=== PATIENT | male | born 1965 | race Caucasian/White ===

== ENCOUNTER 2023-12-26 18:33 | Emergency (ER) | payer OTHER, SELFPAY ==
[2023-12-26 18:34] VITALS: BP 179/116; PULSE 114; RESP 18; TEMP 39.3; O2SAT 95; BMI 33.0
--- NOTE | 2023-12-26 18:36 | ED_ITS ---
I was consulted by the AISHA, and we discussed the complexity of the problems being addressed. I approved the treatment and management plan for this patient's care in the emergency department, thus performing a substantive portion of the medical decision making. Arsh Benito MD Discharge Plan Disposition Patient Disposition: Home, Self-Care Condition: Good Referrals Follow up/Referrals: Mehran Hughes [Primary Care Provider] - See instructions Activity Restrictions/Add. Instructions Additional Instructions/Restrictions: Please take 1000 mg, two 500 mg tablets, alternating with 800 mg of Motrin every 4 hours as needed for symptoms. Please return to the ER for any worsening or new symptoms. Clinical Impressions Clinical Impression: Influenza A Discharge ED Provider: Arsh Benito General Adult HPI General Chief complaint: Upper Respiratory Infection Stated complaint: exposed to flu-fever, SOA, VANG body aches Time Seen by Provider: 12/26/23 18:35 History of Present Illness HPI narrative: Patient presents with nonproductive cough, fever, myalgias, back pain. Patient's was diagnosed with influenza yesterday. Patient actually started having symptoms last night. He denies cardiac type chest pain hemoptysis hematochezia melena nausea vomiting diarrhea. Patient states his back pain is located in the lumbar area and is worse when coughing. Related Data Allergies Allergy/AdvReac Type Severity Reaction Status Date / Time erythromycin base Allergy Verified 12/26/23 18:49 tetracycline Allergy Verified 12/26/23 18:49 [facility] Disclaimer: The information contained in this section may have been updated after the patient was seen, as this information can be updated by other users. Social History Smoking Status: Current every day smoker alcohol intake: former current occupational status: disabled Travel in the last 8 weeks: None ROS Obtained: Yes Systems reviewed as appropriate & no additional complaints except as documented Physical Exam General General appearance: alert and in no apparent distress Head Head exam: atraumatic and normocephalic ENT ENT exam: Present normal exam and normal oropharynx; Absent mucous membranes moist (Very dry) Neck Neck exam: Present normal inspection and full ROM Chest Chest inspection: Present normal inspection and symmetric chest wall rise Respiratory Respiratory exam: Present normal lung sounds bilaterally; Absent respiratory distress, wheezes or accessory muscle use Cardiovascular Cardiovascular exam: Present normal rhythm, tachycardia and normal heart sounds Abdominal Exam Abdominal exam: Present soft and tenderness Extremities Exam Extremities exam: Present normal inspection and full ROM Back Exam Back exam: Present normal inspection, full ROM and tenderness (Bilateral lumbar paraspinous muscles tender to palpation. No deformities contusions abrasions. Patient is neurovascularly intact distally with no worsening symptoms with range of motion testing) Neurological Exam Neurological exam: Present alert and oriented X3 Skin Skin exam: Present other (Skin is hot diaphoretic and slightly flushed.) Medical Decision Making Medical Records Medical records reviewed: Yes I reviewed the patient's medical records. Paul Inquiry Pt receiving controlled substance: No Vital Signs: 12/26/23 18:34 Temperature 102.8 F H Temperature Source Oral Pulse Rate [Radial] 114 H Respiratory Rate 18 Blood Pressure [Right Arm] 179/116 H Blood Pressure Mean [Right Arm] 137 Blood Pressure Source [Right Arm] Automatic Cuff Blood Pressure Position [Right Arm] Sitting 02 Sat by Pulse Oximetry 95 Oxygen Delivery Method Room Air Lab Data Lab results reviewed: Yes I reviewed the patient's lab results. Lab Results 12/26/23 18:40: SARS-CoV-2 (PCR) Not detected, Influenza A Untype (PCR) Detected A, Influenza Type B (PCR) Not detected Orders (Tests/Meds): ED MEDICATIONS Generic Name Dose Route Start Last Admin Trade Name Freq PRN Reason Stop Dose Admin Lactated Ringer's 1,000 mls @ 999 mls/hr 12/26/23 18:58 12/26/23 19:21 Lactated Ringer's 1000 Ml Bag IV 12/26/23 19:58 999 mls/hr .Q1H1M ONE Administration Discontinued Medications Generic Name Dose Route Start Last Admin Trade Name Freq PRN Reason Stop Dose Admin Acetaminophen 1,000 mg 12/26/23 18:49 12/26/23 18:58 Acetaminophen 500mg Tab PO 12/26/23 18:50 1,000 mg ONCE ONE Administration Ketorolac Tromethamine 30 mg 12/26/23 18:49 12/26/23 18:58 Ketorolac 30mg/Ml Vial IM 12/26/23 18:50 30 mg ONCE ONE Administration ORDERS Category Date Time Status XR chest portable Stat Exams 12/26/23 18:49 Taken Rapid PCR Covid and Flu A/B Stat Lab 12/26/23 18:40 Completed Medical Decision Narrative: In summary patient is a 58-year-old male who presents to the emergency d epartment for evaluation of fever cough myalgias and flu exposure. Patient is slightly elevated blood pressure and tachycardia upon arrival, with a temperature of 102.8 on arrival. Physical exam shows an unwell appearing 58-year-old male who has a dry cough and shows sinus tachycardia on the monitor and a subjective back pain that is nonpalpable on palpation and with no CVA tenderness to percussion. Auscultated breath sounds shows clear breath sounds bilaterally to the bases.. Differential diagnosis includes influenza versus muscle strain versus COPD versus other viral or bacterial illness. Initial workup will be conducted with rapid COVID flu chest x-ray. Initial interventions include crystalloid bolus Tylenol and Toradol. Initial workup reviewed by me shows via my informal interpretation a normal chest x-ray without any evidence of acute infiltrate or other processes. Patient is positive for influenza A. Upon repeat evaluation improvement in his constitutional symptoms and his fever had defervesced. Given this appropriate for discharge home with instructions to treat his symptoms especially the fever with 1000 mg of Tylenol every 6-8 hours as needed alternating with 800 mg of ibuprofen in the 4 hours between. Patient to follow-up with PCP as needed or return to the ER for any worsening or new symptoms. Via shared decision making patient verbalized understanding and was agreeable to that plan. Critical Care Critical Care Time Critical Care Time: No
[2023-12-26 18:46] LABS: Coronavirus 19, PCR Not Detected (NotDetected); Influenza B, PCR Not Detected (NotDetected)
--- NOTE | 2023-12-26 18:49 | XR_ITS ---
PROCEDURE INFORMATION: Exam: XR Chest Exam date and time: 12/26/2023 6:56 PM Age: 58 years old Clinical indication: Cough and fever; Patient HX: Fever, cough, his has flu and he thinks he has it as well. Smoker; Additional info: Fever cough TECHNIQUE: Imaging protocol: Radiologic exam of the chest. Views: 1 view. COMPARISON: No relevant prior studies available. FINDINGS: Lungs: Central opacities with peribronchial cuffing. Pleural spaces: Unremarkable. No pleural effusion. No pneumothorax. Heart/Mediastinum: Unremarkable. No cardiomegaly. Bones/joints: Unremarkable. IMPRESSION: Combination of findings that suggests viral process versus reactive airways without evidence of consolidation.
[2023-12-26] MEDS: ACETAMINOPHEN 500MG TAB 1000 MG PO (18:58)
[2023-12-26] MEDS: KETOROLAC 30MG/ML VIAL 30 MG IM (18:58)
[2023-12-26 19:06] LABS: Influenza A, PCR Detected (NotDetected)
[2023-12-26] MEDS: LACTATED RINGERS 1000ML 1,000 ML 999 ML IV (19:21)
[2023-12-26 19:40] VITALS: TEMP 38.2
[2023-12-26 20:31] VITALS: BP 143/88; PULSE 98; RESP 18; TEMP 37; O2SAT 94
== END 2023-12-26 20:32 | disposition home or self-care (01) ==
PROVIDERS: Physician Assistant; Emergency Provider Emergency Medicine; PCP Family Medicine
DX: J10.1 Influenza due to other identified influenza virus with other respiratory manifestations (principal); R05.9 Cough, unspecified; R50.9 Fever, unspecified; R51.9 Headache, unspecified; R06.02 Shortness of breath; M54.9 Dorsalgia, unspecified; R00.0 Tachycardia, unspecified; F17.200 Nicotine dependence, unspecified, uncomplicated
CPT/HCPCS: 71045; 87636; 96360; 96372; 99284

== ENCOUNTER 2024-05-12 23:58 | Emergency (ER) | payer OTHER, SELFPAY ==
[2024-05-13 00:07] VITALS: BP 190/97; PULSE 60; RESP 16; TEMP 36.6; O2SAT 98; BMI 32.1
[2024-05-13 00:10] VITALS: BMI 32.1
[2024-05-13] MEDS: TETRACAINE/BENZOCAINE/BUTAMBEN 56 GM SPRAY TP (00:26)
[2024-05-13] MEDS: LIDOCAINE 2% VISCOUS SOL 15ML UDC 15 ML PO (00:27)
[2024-05-13] MEDS: OXYCODONE 5MG IMMEDIATE RELEASE TABLET 5 MG PO (00:27)
[2024-05-13 00:28] VITALS: BP 191/103; PULSE 64; O2SAT 97
--- NOTE | 2024-05-13 00:30 | HMH.EDGENADL ---
Discharge Plan Disposition Patient Disposition: Home, Self-Care Condition: Good Prescriptions Prescriptions: New amoxicillin-pot clavulanate 875-125 mg tablet 1 tab PO BID Qty: 14 0RF oxycodone 5 mg tablet 5 mg PO Q8H PRN (Reason: pain, severe) Qty: 6 0RF Referrals Follow up/Referrals: Mehran Hughes [Primary Care Provider] - See instructions Activity Restrictions/Add. Instructions Additional Instructions/Restrictions: You were evaluated in the ER. You are appropriate for discharge at this time. Take the prescribed antibiotics as directed, do not skip doses, do not stop taking them early. Take Tylenol and ibuprofen if needed for pain, also use the provided dental balls. You can use these for 1 hour at a time, then remove for an hour. Do not sleep or eat with these in. Only take the prescribed oxycodone if your pain is not controlled by Tylenol, ibuprofen, and dental balls. This should only be used for severe pain. This can cause sleepiness as well as constipation. Avoid driving after you have taken this. Make an appointment with his dentist as soon as possible for reevaluation and dental treatment. Also make an appoint with your primary care physician for reevaluation. Return to the ER with new, worsening, or otherwise concerning symptoms. Clinical Impressions Clinical Impression: Dental infection, Dental caries, Broken teeth Discharge ED Provider: Yue Pagan Adult HPI General Chief complaint: Dental/Oral Stated complaint: broken tooth Time Seen by Provider: 05/13/24 00:09 Mode of Arrival: Family Vehicle Source of Information: Patient Limitations: No Limitations Description of Symptoms (Recalled from ER Triage Doc. by RN): left upper jaw pain after tooth broke during supper (approx 2 hours ago). states he attempted self-care at home but the pain is extreme and just wants help so he can rest. History of Present Illness HPI narrative: 59-year-old male with history of hypertension presents to the ER for concerns of upper jaw pain. Patient states he has multiple bad teeth, the last time he saw dentist was approximately 5 to 6 years ago. Patient states he broke a tooth during supper approximately 2 hours prior to arrival. Since that time he has had pain shooting up into the left side of the face. Patient states he is concerned about possible infection. ROS otherwise negative. Patient took ibuprofen prior to arrival. Related Data Previous Rx's Medication Instructions Recorded amoxicillin 875 mg-potassium 1 tab PO BID #14 tabs 05/13/24 clavulanate 125 mg tablet oxycodone 5 mg tablet 5 mg PO Q8H PRN pain, severe #6 05/13/24 tabs Allergies Allergy/AdvReac Type Severity Reaction Status Date / Time erythromycin base Allergy Verified 12/26/23 18:49 tetracycline Allergy Verified 12/26/23 18:49 [facility] Disclaimer: The information contained in this section may have been updated after the patient was seen, as this information can be updated by other users. Social History (Updated 12/26/23 @ 19:34 by ZOLTAN Orozco) Smoking Status: Unknown if ever smoked alcohol intake: former current occupational status: disabled Travel in the last 8 weeks: None ROS Obtained: Yes All systems reviewed & no additional complaints except as documented ENT Ears, Nose, Mouth, and Throat: Reports dental pain and Reports facial pain Physical Exam General General appearance: alert and in no apparent distress Head Head exam: atraumatic and normocephalic Eye Eye exam: Present PERRL and EOMI ENT ENT exam: Present mucous membranes moist and other (No trismus; no submandibular erythema or swelling); Absent normal oropharynx (Extremely poor dentition, multiple dental fractures and missing teeth, multiple dental caries, erythema of the left maxillary gingiva, no abscess or obvious fluctuance, multiple fractured teeth on the side) Neck Neck exam: Present normal inspection and full ROM; Absent lymphadenopathy Chest Chest inspection: Present symmetric chest wall rise Respiratory Respiratory exam: Absent respiratory distress or stridor Cardiovascular Cardiovascular exam: Present regular rate and normal rhythm Extremities Exam Extremities exam: Present full ROM Neurological Exam Neurological exam: Present alert and oriented X3; Absent motor sensory deficit Psychiatric Psychiatric exam: Present normal affect and normal mood Skin Skin exam: Present warm and dry Medical Decision Making Paul Inquiry Pt receiving controlled substance: Yes Paul was queried for this patient: No (PDMP reviewed, no narcotics prescriptions) Risks and benefits of using a controlled substance: were discussed with pt by me Vital Signs: 05/13/24 00:07 05/13/24 00:28 05/13/24 00:45 Temperature 97.8 F Temperature Source Oral Pulse Rate 64 57 L Pulse Rate [Right Brachial] 60 Respiratory Rate 16 Blood Pressure 191/103 H 160/100 H Blood Pressure [Right Arm] 190/97 H Blood Pressure Mean [Right Arm] 128 Blood Pressure Source Manual Cuff/ Auscultation Blood Pressure Source [Right Arm] Automatic Cuff Blood Pressure Position Blood Pressure Position [Right Arm] Sitting 02 Sat by Pulse Oximetry 98 97 96 Oxygen Delivery Method Room Air 05/13/24 00:55 Temperature 98.7 F Temperature Source Oral Pulse Rate 60 Pulse Rate [Right Brachial] Respiratory Rate 18 Blood Pressure 160/100 H Blood Pressure [Right Arm] Blood Pressure Mean [Right Arm] Blood Pressure Source Manual Cuff/ Auscultation Blood Pressure Source [Right Arm] Blood Pressure Position Sitting Blood Pressure Position [Right Arm] 02 Sat by Pulse Oximetry Oxygen Delivery Method Room Air Orders (Tests/Meds): ED MEDICATIONS Discontinued Medications Generic Name Dose Route Start Last Admin Trade Name Freq PRN Reason Stop Dose Admin Amoxicillin/Clavulanate Potassium 1 each 05/13/24 00:46 05/13/24 00:49 Amoxicillin/Clavulanate Potassium 875/125mg Tablet PO 05/13/24 00:47 1 each ONCE ONE Administration Benzocaine/Butamben/Tetracaine HCl 1 gm 05/13/24 00:10 05/13/24 00:26 Tetracaine/Benzocaine/Butamben 56 Gm [place] TP 05/13/24 00:11 1 gm ONCE ONE Administration Lidocaine HCl 15 ml 05/13/24 00:10 05/13/24 00:27 Lidocaine 2% Viscous [place] 15ml Udc PO 05/13/24 00:11 15 ml ONCE ONE Administration Oxycodone HCl 5 mg 05/13/24 00:12 05/13/24 00:27 Oxycodone 5mg Immediate Release Tablet PO 05/13/24 00:13 5 mg ONCE ONE Administration Medical Decision Narrative: In summary, this 59-year-old male presents to the emergency department today with left maxillary dental pain. On initial evaluation patient is hemodynamically stable, afebrile, multiple dental caries, fractured teeth, missing teeth, poor dentition overall, tenderness of the left maxillary gingiva without obvious abscess. Differential diagnosis includes but is not limited to dental abscess, other dental infection, fractured tooth, I considered Ludewig's angina however patient does not have any pain in the mandible or submandibular space, no submandibular swelling, no swelling under the tongue. I do not believe patient requires any labs or imaging at this time. He received oxycodone and dental balls in the ER. Short course of oxycodone was prescribed to the patient for outpatient management of acute pain until he is able to see a dentist. I also prescribed Augmentin. He received a dose of this in the ER as well. Patient was given instructions on symptomatic management, follow up instructions, and return precautions for the emergency department. Patient indicated understanding and was discharged in stable condition. Critical Care Critical Care Time Critical Care Time: No
[2024-05-13 00:45] VITALS: BP 160/100; PULSE 57; O2SAT 96
[2024-05-13] MEDS: AMOXICILLIN/CLAVULANATE POTASSIUM 875/125MG TABLET 1 EACH PO (00:49)
[2024-05-13 00:55] VITALS: BP 160/100; PULSE 60; RESP 18; TEMP 37.1; O2SAT 98
== END 2024-05-13 01:10 | disposition home or self-care (01) ==
PROVIDERS: Emergency Provider Emergency Medicine; PCP Family Medicine
DX: R68.84 Jaw pain (principal); K04.7 Periapical abscess without sinus; K03.81 Cracked tooth; K02.9 Dental caries, unspecified; I10 Essential (primary) hypertension
CPT/HCPCS: 99283

== ENCOUNTER 2024-06-28 12:52 | Emergency (ER) | payer OTHER, SELFPAY ==
[2024-06-28 12:53] VITALS: BP 170/106; PULSE 57; RESP 19; TEMP 36.8; O2SAT 98; BMI 24.2
--- NOTE | 2024-06-28 12:59 | PC.NURSE ---
DR MENA AT BEDSIDE
--- NOTE | 2024-06-28 13:05 | HMH.EDGENADL ---
Discharge Plan Disposition Patient Disposition: Home, Self-Care Prescriptions Prescriptions: New amoxicillin-pot clavulanate 875-125 mg tablet 1 tab PO BID 10 Days Qty: 20 0RF No Action amoxicillin-pot clavulanate 875-125 mg tablet 1 tab PO BID Qty: 14 0RF oxycodone 5 mg tablet 5 mg PO Q8H PRN (Reason: pain, severe) Qty: 6 0RF Referrals Follow up/Referrals: Mehran Hughes [Primary Care Provider] - See instructions Activity Restrictions/Add. Instructions Additional Instructions/Restrictions: Take antibiotics as prescribed. Take Tylenol and ibuprofen as needed for symptoms. Follow-up with dentist as soon as possible. Please return the emerged part with any new, concerning, worsening symptoms Clinical Impressions Clinical Impression: Pain, dental Instructions Patient Instructions: DI for Dental Pain Print Language Print Language: Nigerien Discharge ED Provider: Chetan Soto General Adult HPI General Chief complaint: PAIN Stated complaint: pain in teeth Time Seen by Provider: 06/28/24 12:54 History of Present Illness HPI narrative: This is a 59-year-old male with poor dentition presenting with dental pain. States that he has had intermittent dental infections requiring treatment with antibiotics intermittently. States that he has not been able to see a dentist over the last several years. States that he knows that he has bad teeth and needs to have them pulled. States that he is in process and finding a dentist/oral surgeon. Is requesting antibiotics. Denies any facial swelling. Denies any other symptoms Related Data Previous Rx's ?Medication ?Instructions ?Recorded amoxicillin 875 mg-potassium 1 tab PO BID #14 tabs 05/13/24 clavulanate 125 mg tablet oxycodone 5 mg tablet 5 mg PO Q8H PRN pain, severe #6 05/13/24 tabs amoxicillin 875 mg-potassium 1 tab PO BID 10 days #20 tabs 06/28/24 clavulanate 125 mg tablet Allergies Allergy/AdvReac Type Severity Reaction Status Date / Time erythromycin base Allergy Verified 12/26/23 18:49 tetracycline Allergy Verified 12/26/23 18:49 [facility] Disclaimer: The information contained in this section may have been updated after the patient was seen, as this information can be updated by other users. Social History (Updated 12/26/23 @ 19:34 by ZOLTAN Orozco) Smoking Status: Current every day smoker alcohol intake: former current occupational status: disabled Travel in the last 8 weeks: None ROS Obtained: Yes All systems reviewed & no additional complaints except as documented Physical Exam General General appearance: alert and in no apparent distress Eye Eye exam: Present normal appearance, PERRL and EOMI ENT ENT exam: Present other (Extremely poor dentition, dental caries and fractures throughout) Respiratory Respiratory exam: Absent respiratory distress Cardiovascular Cardiovascular exam: Present regular rate and normal rhythm Extremities Exam Extremities exam: Present normal inspection Neurological Exam Neurological exam: Present alert and oriented X3 Skin Skin exam: Present warm and dry Medical Decision Making Medical Records Medical records reviewed: Yes I reviewed the patient's medical records. Paul Inquiry Pt receiving controlled substance: No Vital Signs: 06/28/24 12:53 06/28/24 13:18 Temperature 98.3 F 98.0 F Temperature Source Oral Oral Pulse Rate 53 L Pulse Rate [Left Radial] 57 L Respiratory Rate 19 16 Blood Pressure 151/94 H Blood Pressure [Right Arm] 170/106 H Blood Pressure Mean [Right Arm] 127 Blood Pressure Source Automatic Cuff Blood Pressure Position Sitting 02 Sat by Pulse Oximetry 98 Oxygen Delivery Method Room Air Room Air Orders (Tests/Meds): ED MEDICATIONS Discontinued Medications Generic Name Dose Route Start Last Admin Trade Name Freq PRN Reason Stop Dose Admin Acetaminophen 1,000 mg 06/28/24 13:02 06/28/24 13:09 Acetamin
[2024-06-28 13:18] VITALS: BP 151/94; PULSE 53; RESP 16; TEMP 36.7; O2SAT 98
== END 2024-06-28 13:19 | disposition home or self-care (01) ==
LOC: ER 13:08
PROVIDERS: Emergency Provider Student in an Organized Health Care Education/Training Program; PCP Family Medicine
DX: K08.89 Other specified disorders of teeth and supporting structures (principal); F17.210 Nicotine dependence, cigarettes, uncomplicated
CPT/HCPCS: 99283

== ENCOUNTER 2024-09-19 12:52 | Emergency (ER) | payer OTHER, SELFPAY ==
[2024-09-19 12:53] VITALS: BP 189/106; PULSE 63; RESP 13; TEMP 37.1; O2SAT 97; BMI 33.0
[2024-09-19] MEDS: AMOXICILLIN/CLAVULANATE POTASSIUM 875/125MG TABLET 1 EACH PO (13:21)
--- NOTE | 2024-09-19 13:25 | ED_ITS ---
Discharge Plan Disposition Patient Disposition: Home, Self-Care Condition: Good Prescriptions Prescriptions: New amoxicillin-pot clavulanate 875-125 mg tablet 1 tab PO BID Qty: 20 0RF No Action amoxicillin-pot clavulanate 875-125 mg tablet 1 tab PO BID Qty: 14 0RF oxycodone 5 mg tablet 5 mg PO Q8H PRN (Reason: pain, severe) Qty: 6 0RF amoxicillin-pot clavulanate 875-125 mg tablet 1 tab PO BID 10 Days Qty: 20 0RF Referrals Follow up/Referrals: Mehran Hughes [Primary Care Provider] - See instructions Activity Restrictions/Add. Instructions Additional Instructions/Restrictions: You were evaluated in the ER and are appropriate for discharge at this time. Use the dental balls you have at home for pain management, you can also take Tylenol and ibuprofen, do not exceed the recommended dose on the bottle. Take the prescribed antibiotics as directed, do not skip doses, do not stop taking them early. Please make an appointment with a dentist to soon as possible for evaluation. Return to the ER with new, worsening, or otherwise concerning symptoms. Clinical Impressions Clinical Impression: Dental caries, Broken teeth, Pain, dental Print Language Print Language: Ukrainian Discharge ED Provider: Yue Pagan General Adult HPI General Chief complaint: Dental/Oral Stated complaint: broke tooth Time Seen by Provider: 09/19/24 12:55 Mode of Arrival: Ambulatory Source of Information: Patient Limitations: No Limitations Description of Symptoms (Recalled from ER Triage Doc. by RN): pt presents to ED with c/o left sided facial pain due to tooth loss. pt reports that he has been unable to get into the dentist. pt reports headache from tooth pain. History of Present Illness HPI narrative: 59-year-old male presents to the ER with left upper dental pain. Patient reports he has multiple broken teeth and has had infection before. He reports one of his left upper teeth broke again yesterday and it is now increasingly painful. He is requesting antibiotics. He states the pain kept him up last night. He states he used some dental balls that he had from previous visits earlier today and they helped some but then wore off. Patient believes antibiotics helped the most with pain. He states he has been unable to get into the dentist due to insurance and surgical issues. He denies any difficulty breathing or swallowing, no facial swelling. No fevers. Review of systems otherwise negative Related Data Previous Rx's ?Medication ?Instructions ?Recorded amoxicillin 875 mg-potassium 1 tab PO BID #14 tabs 05/13/24 clavulanate 125 mg tablet oxycodone 5 mg tablet 5 mg PO Q8H PRN pain, severe #6 05/13/24 tabs amoxicillin 875 mg-potassium 1 tab PO BID 10 days #20 tabs 06/28/24 clavulanate 125 mg tablet amoxicillin 875 mg-potassium 1 tab PO BID #20 tabs 09/19/24 clavulanate 125 mg tablet Allergies Allergy/AdvReac Type Severity Reaction Status Date / Time erythromycin base Allergy Verified 12/26/23 18:49 tetracycline Allergy Verified 12/26/23 18:49 [facility] Disclaimer: The information contained in this section may have been updated after the patient was seen, as this information can be updated by other users. Social History (Updated 12/26/23 @ 19:34 by ZOLTAN Orozco) Smoking Status: Current every day smoker alcohol intake: former current occupational status: disabled Travel in the last 8 weeks: None ROS Obtained: Yes Systems reviewed as appropriate & no additional complaints except as documented ROS per HPI Physical Exam General General appearance: alert and in no apparent distress Head Head exam: atraumatic and normocephalic Eye Eye exam: Present PERRL and EOMI ENT ENT exam: Present mucous membranes moist and other (Poor dentition throughout with multiple caries and multiple fractured teeth, no submandibular or sublingual swelling, no facial swelling) Expanded ENT Exam Teeth numbered Image: 2 1. Fractured, Dental Tenderness and Other (No abscess) Neck Neck exam: Present normal inspection and full ROM Chest Chest inspection: Present symmetric chest wall rise Respiratory Respiratory exam: Absent respiratory distress or stridor Cardiovascular Cardiovascular exam: Present regular rate and normal rhythm Abdominal Exam Abdominal exam: Present soft; Absent distention or tenderness Extremities Exam Extremities exam: Present full ROM Neurological Exam Neurological exam: Present alert and oriented X3; Absent motor sensory deficit Psychiatric Psychiatric exam: Present normal affect and normal mood Skin Skin exam: Present warm and dry Medical Decision Making Medical Records Medical records reviewed: Yes I reviewed the patient's medical records. Screening: Per USPSTF and CDC recommendations, given the prevalence of disease in our region, it is our hospital?s policy to screen for HIV and viral Hepatitis for all patients aged 18 and over and those with ongoing risk factors. MR Comment: Patient has been evaluated previously for dental pain and prescribed Augmentin which she states worked well Paul Inquiry Pt receiving controlled substance: No Vital Signs: 09/19/24 12:53 Temperature 98.8 F Temperature Source Oral Pulse Rate [Left Radial] 63 Respiratory Rate 13 Blood Pressure [Right Arm] 189/106 H Blood Pressure Mean [Right Arm] 133 02 Sat by Pulse Oximetry 97 Oxygen Delivery Method Room Air Orders (Tests/Meds): ED MEDICATIONS Generic Name Dose Route Start Last Admin Trade Name Freq PRN Reason Stop Dose Admin Amoxicillin/Clavulanate Potassium 1 each 09/19/24 13:17 09/19/24 13:21 Amoxicillin/Clavulanate Potassium 875/125mg Tablet PO 09/19/24 13:18 1 each ONCE ONE Administration ORDERS Category Date Time Status HIV (1&2) Antibody Rapid Stat Lab 09/19/24 13:01 Ordered Hep C Ab with Reflex to RNA Stat Lab 09/19/24 13:01 Ordered Medical Decision Narrative: 59-year-old male who reports no chronic medical problems presents to the ER for complaints of dental pain. On evaluation he has extremely poor dentition with caries and multiple fractured teeth throughout however he demonstrates to tooth 12 indicating maximal pain. This tooth is fractured at the gumline. I considered gingivitis, abscess, dental fracture, patient does not have any findings of Christ so I considered this as well given his poor dentition. I recommended nerve block and antibiotics, patient refused the nerve block and dental balls stating he has dental balls at home. He requested to just receive a dose of antibiotics and to have them prescribed since they helped him in the past. I explained the antibiotics do not treat pain, they treat infection which he does not have obvious abscess but does have findings of gingivitis/infection without abscess. He understands and still requests nothing for pain, just antibiotics. He received a dose of Augmentin in the ER and was prescribed Augmentin for outpatient management. I strongly encouraged him to follow-up with a dentist to soon as possible for definitive care. Patient was given instructions on symptomatic management, follow up instructions, and return precautions for the emergency department. Patient indicated understanding and was discharged in stable condition. Critical Care Critical Care Time Critical Care Time: No
[2024-09-19 13:26] VITALS: BP 189/106; PULSE 63; RESP 13; TEMP 36.7
== END 2024-09-19 13:31 | disposition home or self-care (01) ==
PROVIDERS: Emergency Provider Emergency Medicine; PCP Family Medicine
DX: S02.5XXA Fracture of tooth (traumatic), initial encounter for closed fracture (principal); K02.9 Dental caries, unspecified; R51.9 Headache, unspecified; K08.89 Other specified disorders of teeth and supporting structures
CPT/HCPCS: 99283